=== PATIENT | female | born 1940 ===

== ENCOUNTER 2018-07-10 11:17 | Inpatient (IN) | payer MEDICARE ==
[~2018-07-10 11:17] MED LIST: Gadobenate Dimeglumine 529 MG/1 ML (20ML VIAL) ONE
--- NOTE | 2018-07-10 11:58 | RAD ---
CHEST 1 VIEW: Date: 07/10/18 INDICATION: Altered mental status. COMPARISON: None. FINDINGS: There is mild cardiomegaly. There is mild pulmonary vascular congestion. No consolidation, pleural ef fusion, or pneumothorax evident. No acute osseous abnormality is evident. IMPRESSION: Mild cardiomegaly with mid pulmonary vascular congestion. POS: TPC
[2018-07-10 11:59] LABS: #Eosinphils 0.1 thou/uL (0.0-0.7); #Lymphocytes 0.9 thou/uL (1.20-3.40); #Monocytes 0.6 thou/uL (0.11-0.59); #Neutrophils 3.9 thou/uL (1.40-6.50); %Basophils 0.8 % (0.0-1.0); %Eosinophils 2.3 % (0.0-10.0); %Lymphocytes 15.3 % (21.0-51.0); %Monocytes 11.6 % (0.0-10.0); %Neutrophils 69.9 % (42.0-75.0); Hemoglobin 13.5 g/dL (12.0-16.0); Mean Corpuscular HGB CONC 32.6 g/dL (32.0-36.0); Mean Corpuscular Hemoglobin 29.4 pg (27.0-31.0); Mean Corpuscular Volume 90.3 fL (78.0-98.0); Mean Platelet Volume 8.3 fL (7.4-10.4); Platelet Count 177 thou/uL (130-400); Red Blood Cell (RBC) Count 4.59 mill/uL (4.20-5.40); White Blood Cell (WBC) Count 5.6 thou/uL (4.8-10.8)
[2018-07-10 12:10] LABS: ALT (SGPT) 10 U/L (8-55); AST (SGOT) 15 U/L (5-34); Alkaline Phosphatase 50 U/L (40-150); Anion Gap 15 mmol/L (10-20); BUN (Urea Nitrogen) 14 mg/dL (9.8-20.1); Calc. Creatinine Clearance 0 mL/min (70-130); Carbon Dioxide 21 mmol/L (23-31); Chloride 104 mmol/L (98-107); Estimated GFR-MDRD 55; Globulin 3.3 g/dL (2.4-3.5); Glucose 109 mg/dL (83-110); Potassium 4.4 mmol/L (3.5-5.1); Protein, Total 7.3 g/dL (6.0-8.3); Sodium 136 mmol/L (136-145)
[2018-07-10] MEDS ORDERED: Acetaminophen 325 MG TAB ONE (12:12)
[2018-07-10] MEDS ORDERED: Piperacillin/Tazobactam 4.5 GM VIAL ONE (12:12)
[2018-07-10 12:14] LABS: Bilirubin Negative (Negative); Blood, Urine Small (Negative); Clarity CLEAR (Clear); Glucose, Urine (Dipstick) Negative (Negative); Leukocyte Negative (Negative); Nitrite Negative (Negative); Protein, Urine (Dipstick) Negative (Neg-Trace); Specific Gravity, Urine 1.015 (1.002-1.036)
[2018-07-10] MEDS ORDERED: Acetaminophen 325 MG Suppository ONE (12:19)
[2018-07-10 12:37] LABS: Bacteria/HPF None Seen HPF (None Seen); Hyaline Casts/LPF 0-3 HYALINE CAST LPF (0-3 Hyaline); Pathc Cast-AUWi Flag 0.58 (0-2.49); RBC/HPF 0-3 HPF (0-3); Squamous Epithelial 0-3 HPF (0-3); WBC/HPF 0-3 HPF (0-3)
[2018-07-10 14:31] LABS: Magnesium 2.1 mg/dL (1.6-2.6)
[2018-07-10] MEDS ORDERED: Lidocaine 2 gm/D5W 500 ml 0 ML ONE (14:46)
[2018-07-10] MEDS ORDERED: Fentanyl 100 MCG/2 ML VIAL ONE (14:46)
--- NOTE | 2018-07-10 14:49 | CT ---
CT HEAD NONCONTRAST: HISTORY: Altered mental status. FINDINGS: At the posterior aspect of the left temporal lobe at the expected location of the tentorium is a subt le ill-defined area of increased density. A subtle lentiform density also underlies the left occipit al calvarium at this location. No mass effect or shift of midline structures. Diffuse cortical atro phy and chronic ischemic small-vessel disease. Visualized paranasal sinuses remain well aerated. No depressed skull fracture is evident. IMPRESSION: Hyperdensity at the left posterior fossa as detailed above. While this most likely represents calcif ication associated with the falx and blood within the dural sinus, the appearance and asymmetry raise significant concern for a small amount of subarachnoid and subdural hemorrhage. In the setting of r ecent trauma, hemorrhage would be more likely. There is no mass effect. Please consider close monitoring and short-term CT followup. Findings were called to Dr. Ribera in the emergency department at 1426 hours. CODE CR POS: CHELSEA
--- NOTE | 2018-07-10 17:50 | HP ---
PRIMARY CARE PHYSICIAN: Dr. Glaser. CHIEF COMPLAINT: Altered mental status. HISTORY OF PRESENT ILLNESS: The history of present illness is taken from the patient's daughter, who is at the bedside. The patient has advanced dementia and is unable to offer any additional information. Ms. Hoff is a pleasant 78-year-old female, who has a history of advanced Alzheimer dementia. She also has congestive heart failure and COPD. She normally is able to get around with the help of her daughter and will talk even though she is confused and disoriented. However, on yesterday, her daughter noticed that something seemed a little off. She seemed more lethargic than usual and she was walking bent over like she could barely stand. They took her to the ER in [place], where they did a CT scan and lab work and urinalysis and was told everything was normal and did not admit her. The daughter says it took almost three people to get her packed up in the car to take her home from the ER. She was extremely weak and they brought her home and then the following day again she was extremely weak and lethargic and they could barely get her out of bed. She seemed warm to the touch and for this reason, they called EMS to bring her to the hospital. In the ER, the workup was essentially repeated over again and her chemistries and urine looked okay; however, she had a CT scan of the brain, which showed an area along the left posterior fossa, which could possibly represent a blood within the dural sinus and there was some question of a small subarachnoid and subdural hemorrhage. For this reason, she is being admitted. She was also noted to be febrile with a temperature of 101.6. REVIEW OF SYSTEMS: Unable to obtain review of systems due to the patient's confusion and dementia. PAST MEDICAL HISTORY: Significant for Alzheimer dementia, congestive heart failure, COPD, hypertension, hyperlipidemia, and a history of an abdominal aneurysm, status post repair. PAST SURGICAL HISTORY: She has had an AAA repair, back surgery, and cataracts. ALLERGIES: CODEINE, WHICH CAUSES NAUSEA. SOCIAL HISTORY: She is a former smoker. She is . She used to drink daily like a shot at night. She has 5 living children. She is a DNR according to her daughter and would not want any attempt at resuscitation and her daughter is her medical power of it risk and assurance manager. FAMILY HISTORY: Significant for Alzheimer disease. CURRENT MEDICATIONS: Her current medications are taken from her records and include: 1. Namenda 5 mg twice a day. 2. Galantamine 24 mg daily. 3. Gabapentin 300 mg twice a day. 4. Losartan 50 mg once daily. 5. Ventolin inhaler daily. 6. Latanoprost 0.005% as directed. PHYSICAL EXAMINATION: GENERAL: She is confused. She does not appear to be in any distress. She is well-developed and well-nourished. VITAL SIGNS: Temperature was 101.6, heart rate 99, respiratory rate of 20, and O2 saturation was 92% on room air. HEENT: Her pupils are equal, round, and reactive. Extraocular muscles are intact. Her sclerae anicteric. Throat: There is no erythema. No exudate. NECK: No adenopathy. No bruits. LUNGS: She has got some rhonchi throughout, but no wheezing, no rales. CARDIOVASCULAR: She had a normal S1 and S2. I did not appreciate an S3 or S4. No murmurs, clicks, or rubs. ABDOMEN: Obese. It is soft. It is nontender and nondistended. Positive for bowel sounds. There is no rebound, no guarding. EXTREMITIES: She has got 1+ nonpitting edema and some mild erythema on both lower extremities. NEUROLOGIC: She is moving all extremities. Her muscle strength appears to be intact; however, she does not follow commands. SKIN AND INTEGUMENT: Other than some mild erythema, there are no skin changes, no rash. She does have some mycotic nails. LABORATORY RESULTS: By my reading on the CT scan, it is evident of a small hyperdensity in the fissure as well as a what appears to be a very small subdural hematoma on the right. Chest x-ray also by my reading, she has got cardiomegaly with increased pulmonary vascular markings. There is some overlying shadow from breast shadow. Her CBC, the white blood cell count is 5.6, hemoglobin 13.5, hematocrit is 41.4, platelet count is 177. Sodium 136, potassium 4.4, chloride is 104, CO2 is 21, BUN of 14, creatinine 0.98, glucose is 109. Troponin is 0.013. Urinalysis, there was a small blood, otherwise negative. ASSESSMENT: This is a pleasant 78-year-old female, who presents with confusion, it is unclear etiology. 1. There is a metabolic encephalopathy. This is in the face of the patient having a fever with no other obvious source. This was discussed with the patient's daughter at the bedside. We were considering doing a lumbar puncture to rule out possible meningitis and/or to help see if there is any xanthochromia to give more evidence for subarachnoid hemorrhage. She did not want her mother to have to be put through this given her advanced dementia at her baseline. Therefore, another possible source is a bronchitis as she has some rhonchi on exam and has been exposed to family member with upper respiratory symptoms; therefore, we will treat empirically for this and see if there is any improvement. 2. Possible subdural and intracranial hemorrhage. Neurosurgery has been consulted. The area appears to be small. There is no evidence of any mass effect or midline shift. We will avoid any anti-platelet or anticoagulants. 3. Congestive heart failure. This appears to be mildly decompensated. Given her advanced dementia in lieu of doing an echo, we can obtain her records and then just treat symptomatically; when she is more stable, consider diuretic therapy. 4. Hypertension. Her blood pressure was slightly elevated on admission. We will go ahead and treat her with p.r.n. medications and further recommendations are to follow. Job ID: [id number]
[2018-07-10] MEDS ORDERED: Ondansetron ODT 4 MG TAB PO PRN (19:47)
[2018-07-10] MEDS ORDERED: hydrALAZINE 20 MG/ML VIAL SLOW IVP PRN (19:47)
[2018-07-10] MEDS ORDERED: Ondansetron PF 4 MG/2 ML Vial IVP PRN (19:47)
[2018-07-10] MEDS ORDERED: Labetalol HCl 100 MG/20 ML VIAL SLOW IVP PRN (19:47)
[2018-07-10] MEDS ORDERED: Sodium Chloride 0.9% 1,000 ML IV SCH (20:00)
[2018-07-10 20:04] VITALS: BMI 34.9
--- NOTE | 2018-07-10 20:40 | MRI ---
MRI BRAIN WITH AND WITHOUT CONTRAST: 07/10/18 HISTORY: 78-year-old female with altered mental status. Questionable intracranial hemorrhage on noncontrast CT obtained earlier today. TECHNIQUE: Multiple sequences obtained in axial, sagittal, and coronal planes, pre and post IV injection of gado linium-based contrast agent: 20 mL of Multihance. FINDINGS: There is no restricted diffusion, abnormal intraaxial enhancement, mass, midline shift or any other m ass effect, recent intraaxial hemorrhage, or extraaxial fluid collection. There are extensive, conflu ent T2-hyperintensities throughout the cerebral white matter consistent with severe chronic ischemic white matter changes due to microvascular atherosclerosis. There is diffuse brain parenchymal volume loss. There is no evidence of acute intra-axial or extra-axial hemorrhage. The region of high densit y on the recent CT, therefore is due to a combination of calcification along the left side of the ten torium cerebelli and adjacent normal transverse dural venous sinus. There are numerous tiny punctate foci of remote hemorrhages in the right cerebral hemisphere, mostly inferior portions, and a few on the left. These are consistent with multiple prior microhemorrhages, consistent with amyloid angiopathy (the differential diagnosis includes chronic hypertensive encephal opathy, but the lack of such foci in the basal ganglia makes that less likely). There is one very sma ll, short, gyriform focus of remote hemorrhage in the right parieto-occipital cortex which may repres ent a small region of previous hemorrhagic conversion of cortical infarction. There is moderate dilation of the lateral and third ventricles. This is probably on the basis of cent ral brain parenchymal atrophy. Normal pressure hydrocephalus is less likely, but clinical correlation is recommended (is there dementia, urinary incontinence, and/or gait apraxia?). IMPRESSION: 1. Involutional changes and severe chronic ischemic white matter changes. 2. No acute intracranial hemorrhage or any other acute intracranial findings. 3. Evidence for amyloid angiopathy vs chronic hypertensive encephalopathy. jn[] POS: JIN
[2018-07-10] MEDS: Famotidine/PF 20 mg/2ml Vial SLOW IVP SCH (20:52)
[2018-07-10] MEDS: cefTRIAXone\\ROCEPHIN 1 GM in Sodium Chloride 0.9% 100 ML IVPB SCH (20:53)
[2018-07-10] MEDS ORDERED: levETIRAcetam 500 MG in Sodium Chloride 0.9% 100 ML IVPB SCH (21:00)
--- NOTE | 2018-07-10 21:06 | CON ---
DATE OF CONSULTATION: HISTORY OF PRESENT ILLNESS: Ms. Hoff was brought to the emergency department today by EMS. Her daughter called them due to altered mental status over the last 24 hours. The patient's daughter states that she does have Alzheimer's, however, she lives with her and their brother. The patient gets around walking. She will get coffee throughout the day and can use the restroom on her own. The patient's daughter states that yesterday, she started acting off, not quite normal. She did not want to take her medications yesterday and was up and down a lot the night before. They took the patient to [facility] last night, which at that time they found nothing and she was sent home. The patient's daughter states that the patient urinated in her bed twice this morning and that is what prompted EMS. Neurosurgery was consulted today for patient due to a CT of the brain that showed a small subdural and subarachnoid hemorrhage. The patient's daughter does not recall any trauma or falls. She states that the night before last, it is possible that she hit her head on the door frame, but this was unwitnessed. The patient's daughter is worried due to the altered mental status as well as the patient complaining of back pain yesterday along with the urination, which is unusual for her in urinating on herself. REVIEW OF SYSTEMS: Historian reports a fever this morning. No eye discharge. No vision changes. No hearing changes. Historian denies cough or shortness of breath. No abdominal pain or nausea or vomiting. No constipation or diarrhea, however, positive for urinating in bed. Positive for back pain, change in gait and lethargy, altered mental status. ALLERGIES: CODEINE SULFATE. MEDICATIONS: 1. Namenda. 2. Galantamine. 3. Gabapentin. 4. Losartan. 5. Ventolin. 6. Latanoprost. 7. Aspirin 81 mg occasionally. PAST MEDICAL HISTORY: History of abdominal aneurysm, which was stented; hyperlipidemia; hypertension; pulmonary disease; COPD; Alzheimer's. PAST SURGICAL HISTORY: Abdominal aneurysm stenting, back surgery. SOCIAL HISTORY: The patient is a former smoker of cigarettes. Denies alcohol use. Denies any other drug use. Lives with daughter and her and son. PHYSICAL EXAMINATION: CONSTITUTIONAL: The patient is lethargic, but arousable with loud voices. She is confused, febrile, normotensive. Does not appear to be distressed. HEENT: Head is normocephalic, atraumatic. Pupils are small, yet reactive. Left pupil is not round, however, daughter states that is her normal. Extraocular movements are intact. Hearing is intact. Moist mucous membranes. RESPIRATIONS: Normal work of breathing on room air. Symmetrical chest rise. CARDIOVASCULAR: Regular rate and rhythm. EXTREMITIES: The patient is able to move all 4 extremities; however, she is not following commands for me. She does grimace with pain if we elicit any in her extremities and localizes. There is pitting edema in bilateral lower extremities, 2+. NEUROLOGIC: The patient is lethargic. She has a Troy Coma Scale of 10; 3, 2, 5. Cranial nerves are intact. The patient is moving all 4 extremities. IMAGING DATA: CT brain shows hyperdensity at the left posterior fossa while this most likely represents calcification associated with the falx and blood within the dural sinus. The appearance and asymmetry raises significant concern for small amount of subdural and subarachnoid hemorrhage. ASSESSMENT AND PLAN: Ms. Hoff is a 78-year-old female who is brought into the emergency department with altered mental status for the last 30 hours. Given the possible subdural and subarachnoid hemorrhage, likely that she may have hit her head, however, it is unknown if she did or not. Given her fever and altered mental status, I would like to order MRI, monitor closely, and have the medical team workup for any other signs of infection. We will order MRI of the brain with and without contrast, Keppra 500 mg b.i.d. and continue to monitor her neurologic status. Job ID: [id number]
[2018-07-10] MEDS: Azithromycin 500 MG in Sodium Chloride 0.9% 250 ML 250 ML IVPB SCH (21:34)
[2018-07-11] MEDS ORDERED: Prevnar 13-Val Conj/PF 0.5 ML SYRINGE IM ONE (01:15)
--- NOTE | 2018-07-11 07:26 | PRG ---
DATE OF SERVICE: 07/11/2018 NEUROSURGERY PROGRESS NOTE SUBJECTIVE: I personally examined the patient, reviewed records, and imaging, and agreed with the notes of Jenna Cardona PA-C, dated 07/10/2018. Briefly, Maryann Hoff is a 78-year-old woman brought to the emergency department yesterday with a change in her mental status. She is quite drowsy, difficult to keep awake, but she would with enough stimulus answer a question or two and drifts back to sleep. She had no focal motor or sensory deficits that could be appreciated, but a CT examination revealed some posteroinferior temporal lobe hyperdensities on her CT on the left side. Radiology was concerned this could represent some subarachnoid, parenchymal, or subdural hematoma. We ordered an MR scan and that was done yesterday as well, which dispelled that theory. Overnight, Ms. Hoff has been watched in the intermediate care unit. She has gradually woken up, and she is more alert and responsive today. Temperatures overnight 99.1 degrees Fahrenheit or less. Blood pressures in the 110s to 130s. Ms. Hoff wakes easily this morning. She answers questions appropriately. She is moving all four extremities quite well. She does not have a focal deficit that I can appreciate. I reviewed MR imaging, there are small punctate areas of hemosiderin deposition in inferior temporal lobes and on the tentorial surface of the occipital lobes bilaterally. None of these cause mass effect. None of these are acute hemorrhages. In fact, there is no acute hemorrhage in the brain or in the intracranial space. There is no significant enhancement of the lepto or and pachymeninges. There is hydrocephalus. There is T2 signal change around the ventricles, which might be suggestive of some transependymal CSF flow or white matter disease. There is not a significant amount of enhancement around the ependymal surfaces either. Ms. Hoff was placed on levetiracetam in case of what she presented with postictal confusion after seizure. The underlying diagnoses for problem are numerous, none of which require neurosurgical intervention. I will defer the management to Neurology and Medicine. She does not have intracranial hemorrhage and does not need follow up in our office. Ms. Hoff is safe for lumbar puncture with an opening pressure measurement showed that they desired, but again, I do not find anything acute that requires urgent attention from surgery. Job ID: [id number]
--- NOTE | 2018-07-11 08:11 | CT ---
PRELIMINARY REPORT/[facility]/EMERGENTY AFTER-HOURS PROCEDURE CT Head Without Contrast EXAM DATE/TIME: 07/11/2018 3:24 AM CLINICAL HISTORY: 78 years old, female; Condition or disease; Other: Alzheimers disease, AMS; Prior surgery; Surgery da te: Post-operative (0-2 days); Patient HX: F78 with HX of alzheimer's, chf, and copd presents to [facility] from home with daughter with C/O AMS with associated bladder incontinence which is not normal for PT per daughter and lethargy. Temp 101.6f en route per ems. Per daughter, PT was seen at [facility] yesterday with no abnormal findings on labs, CT, and ekg. Daughter states the PT has had s ome gait changes yesterday when PT can normally ambulate. TECHNIQUE: Axial computed tomography images of the head/brain without contrast. COMPARISON: No relevant prior studies available. FINDINGS: Brain: There is no evidence for acute stroke. There is global and diffuse parenchymal volume loss. Small, no dular, bilateral cerebellar tentorial densities which are most likely reflective of tentorial calcifi cations. There are bilateral 1foci of decreased attenuation in the periventricular and subcortical wh ite matter, nonspecific, but most consistent with chronic small vessel ischemic changes in patient of this age. Ventricles / cisterns / extra-axial spaces: There is no midline shift or acute extra-axial fluid clary ection. There is no sulcal effacement. Mild ventricular prominence out of proportion of degree of parenchymal volume loss, may reflect changes of normal pressure hydrocephalus. Sinuses: No findings of acute sinusitis or suspicious sinus mass. Bone: No acute fracture or displacement. Impression: Mild ventricular prominence out of proportion of degree of parenchymal volume loss, may reflect mun[place] es of normal pressure hydrocephalus. Small, nodular, bilateral cerebellar tentorial densities which are most likely reflective of tentoria l calcifications. MRI could be performed to excluded small hemorrhages, considered unlikely, but not completely excluded given no prior exam to serve as baseline. Thank you for allowing us to participate in the care of your patient. Dictated and Authenticated by: Michela Howe MD 07/11/2018 4:05 AM Central Time ([place] & [place]) FINAL REPORT CT HEAD NONCONTRAST PERFORMED ON AN EMERGENCY BASIS: Date: 07/11/18 Time: 0328 hours HISTORY: Abnormal CT. Possible intracranial hemorrhage. Syncope. COMPARISON: 07/10/18. FINDINGS: Findings agree with the preliminary report by Terri. Density along the left tentorium is less prominen t than on the prior study, now favored to be related to tentorial calcification. Hemorrhage is favore d to not be likely. POS: LESLEE
--- NOTE | 2018-07-11 08:38 | PDOC.PN ---
- Subjective Encounter Start Date: 07/11/18 Encounter Start Time: 08:36 Ms. Hoff was seen today in follow-up of altered mental status. She is much better today than she was yesterday. She is much more alert, and she is talking. Her daughter feels she is improved as well. - Objective Resuscitation Status - Order Detail: 07/10/18 16:58 Resuscitation Status Routine Resuscitation Status: DNAR: NO Resuscitation Discussed with: Discussed with the patient's daughter MAR Reviewed: Yes Vital Signs & Weight: Vital Signs (12 hours) Temp Pulse Ox 07/11/18 07:24 100 07/11/18 04:00 98.4 F 07/10/18 23:47 99.1 F Weight Weight 191 lb 5.78 oz Most Recent Monitor Data Heart Rate from ECG 83 NIBP 116/79 NIBP BP-Mean 91 Respiration from ECG 23 SpO2 97 I&O: 07/10/18 07/11/18 07/12/18 06:59 06:59 06:59 Intake Total 800 Output Total 550 Balance 250 Result Diagrams: 07/10/18 11:34 07/10/18 11:34 Phys Exam - Physical Examination HEENT: PERRLA Respiratory: wheezing present + rhonchi bilaterally Cardiovascular: no significant murmur, no rub, irregular Gastrointestinal: soft, non-tender, no distention, positive bowel sounds Musculoskeletal: pulses present, edema present Dx/Plan (1) Metabolic encephalopathy Code(s): G93.41 - METABOLIC ENCEPHALOPATHY Status: Acute (2) Acute bronchitis Code(s): J20.9 - ACUTE BRONCHITIS, UNSPECIFIED Status: Acute (3) CHF (congestive heart failure) Code(s): I50.9 - HEART FAILURE, UNSPECIFIED Status: Chronic (4) Alzheimer disease Code(s): G30.9 - ALZHEIMER'S DISEASE, UNSPECIFIED; F02.80 - DEMENTIA IN OTH DISEASES CLASSD ELSWHR W/O BEHAVRL DISTURB Status: Chronic (5) Back pain Code(s): M54.9 - DORSALGIA, UNSPECIFIED Status: Acute - Plan * Acute Metabolic encephalopathy- improving- possibly this is a result of acute bronchitis * Bronchitis- continue Azithromycin and Rocephin * She has improved significantly overnight- therefore meningitis is less likely * Neurosurgery input is appreciated- MRI did not show evidence of ICH or subdural hematoma- this has been ruled out * Back pain- she has had sudden back pain, and fever- will need to rule out disciitis, and epidural abscess- will check an MRI of the Lumbar spine * Irregular heart beat- will check an EKG to assess * Alzheimer's disease- stable. * OK for transfer out of the [facility]
[2018-07-11] MEDS: Famotidine/PF 20 mg/2ml Vial SLOW IVP SCH (09:56)
[2018-07-11] MEDS: Enoxaparin Sodium 40 MG/0.4 ML SYRINGE SC SCH (09:56)
[2018-07-11] MEDS ORDERED: predniSONE 20 MG TAB PO SCH (11:00)
[2018-07-11 11:04] LABS: #Eosinphils 0.1 thou/uL (0.0-0.7); #Lymphocytes 0.9 thou/uL (1.20-3.40); #Monocytes 0.6 thou/uL (0.11-0.59); #Neutrophils 3.7 thou/uL (1.40-6.50); %Basophils 0.5 % (0.0-1.0); %Eosinophils 1.6 % (0.0-10.0); %Lymphocytes 17.5 % (21.0-51.0); %Monocytes 11.2 % (0.0-10.0); %Neutrophils 69.2 % (42.0-75.0); Hemoglobin 12.5 g/dL (12.0-16.0); Mean Corpuscular HGB CONC 32.7 g/dL (32.0-36.0); Mean Corpuscular Hemoglobin 29.8 pg (27.0-31.0); Mean Corpuscular Volume 90.9 fL (78.0-98.0); Mean Platelet Volume 8.2 fL (7.4-10.4); Platelet Count 157 thou/uL (130-400); Red Blood Cell (RBC) Count 4.21 mill/uL (4.20-5.40); White Blood Cell (WBC) Count 5.4 thou/uL (4.8-10.8)
[2018-07-11 11:21] LABS: Chloride 104 mmol/L (98-107); Potassium 4.1 mmol/L (3.5-5.1); Sodium 138 mmol/L (136-145)
[2018-07-11 11:22] LABS: Calcium 8.6 mg/dL (7.8-10.44); Glucose 92 mg/dL (83-110)
[2018-07-11 11:23] LABS: Carbon Dioxide 26 mmol/L (23-31)
[2018-07-11 11:24] LABS: Anion Gap 12 mmol/L (10-20)
[2018-07-11 11:25] LABS: Calc. Creatinine Clearance 75 mL/min (70-130); Estimated GFR-MDRD 66
[2018-07-11 11:26] LABS: BUN (Urea Nitrogen) 12 mg/dL (9.8-20.1)
--- NOTE | 2018-07-11 12:00 | CON ---
DATE OF CONSULTATION: 07/11/2018 SERVICE: Pulmonary Medicine. REASON FOR CONSULTATION: IMCU patient. HISTORY OF PRESENT ILLNESS: The patient is a 78-year-old white female with past medical history significant for chronic pain. She was brought to the emergency department because of altered mentation. This was witnessed by family. The patient also has advanced dementia. In the emergency room, there was a CT scan, which had a questionable subdural hematoma on it. It was later identified that this was not the case. She had some fever, was lethargic, and was weaker than usual. She cannot provide any additional elements of the presentation because of her advanced cognitive impairment, which is at baseline. That being said, I am told that she is pretty close towards her baseline at this point. PAST MEDICAL HISTORY: 1. Alzheimer's dementia, advanced. 2. Hypertension. 3. Dyslipidemia. 4. COPD. 5. Congestive heart failure. PAST SURGICAL HISTORY: 1. Abdominal aortic aneurysm repair. 2. Back surgery. 3. Cataract surgery. SOCIAL HISTORY: She has a greater than 63-nupg-gcdg history of smoking, but quit remotely. She used to drink on a daily basis, but none to excess was recorded. She has no exposure to chemicals, dust, asbestos, or tuberculosis. She denies any illicit drugs. Currently, she lives in a nursing facility. FAMILY HISTORY: Noncontributory. ALLERGIES: CODEINE CAUSES NAUSEA. MEDICATIONS: List of her inpatient medications was reviewed. No specific updates were made at this time. REVIEW OF SYSTEMS: This cannot be obtained as the patient has encephalopathy. She currently denies any chest pain or shortness of breath. PHYSICAL EXAMINATION: VITAL SIGNS: Afebrile, pulse 88, blood pressure 116/79, respirations 18, and saturation 100% on 2 L nasal cannula. GENERAL: The patient is awake and alert, in no apparent distress. LUNGS: Decent air entry. Rhonchi are present with a prolonged expiratory phase. There is expiratory wheezing noted. HEART: Normal rate and regular. ABDOMEN: Soft, nontender, and nondistended. Bowel sounds are positive. MUSCULOSKELETAL: No cyanosis or clubbing. No pitting in bilateral lower extremities. NEUROLOGIC: Grossly nonfocal. LABORATORY DATA: WBC 5.6, hemoglobin 13.5, platelets 177,000. Neutrophil count is normal. Lactate is unremarkable. Troponins are negative x3. BNP 321. Lipase 25. Comprehensive metabolic profile is completely unremarkable. Urinalysis is negative. Blood cultures x2, urine culture, and influenza A and B are negative. IMAGING DATA: 1. CT of the brain demonstrates tentorial calcification without significant evidence of hemorrhage. 2. MRI of the brain demonstrates involution change and severe chronic ischemic white matter changes. No acute intracranial hemorrhage or other intracranial findings are present. 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 ASSESSMENT: 1. Metabolic encephalopathy, resolved. 2. Dementia, advanced. 3. Chronic obstructive pulmonary disease with acute exacerbation. DISCUSSION AND PLAN: The patient is doing fine from respiratory standpoint. Her mentation essentially is back to baseline. We will continue antibiotics, nebulized medications, and steroids. She can be transitioned out of the IMCU to the Medical Unit. Pulmonary will continue to follow for the time being. Oxygen will be weaned away through time. 70 minutes have been devoted to this patient in various activities. I personally reviewed all imaging studies and laboratory data noted within this document. For fifty percent of this time, I was interacting with the patient at the bedside or coordinating care with the care team. For the remainder of the time I was immediately available to the patient in the hospital unit. Job ID: [id number] MTDD
[2018-07-11] MEDS ORDERED: Gadobenate Dimeglumine 529 MG/1 ML (20ML VIAL) ONE (16:31)
--- NOTE | 2018-07-11 17:07 | MRI ---
MRI LUMBAR SPINE WITH AND WITHOUT GADOLINIUM CONTRAST: 07/11/18 HISTORY: Low back pain. Fever. FINDINGS: No enhancing fluid collections or other abnormal areas of contrast enhancement are apparent. Axial im ages partially show the distal abdominal aorta which is likely dilated, although it is incompletely i balbir. Radiographs are not available for direct correlation, therefore, the lowest lumbar type verteb juarez will be designated as L5, with the remainder numbered accordingly. There is severe S-shaped rotat ory scoliotic curvature. Desiccation of all of the intervertebral discs. Moderate degenerative bone m arrow changes within the end plates. The sagittal images including the lower thoracic spine show posterior disc protrusion at the T11-12 l evel with superior extension. It significantly compresses the ventral aspect of the thecal sac and ef faces the conus medullaris. T12-L1: Disc space narrowing. Posterior disc bulge and circumferential degenerative changes. Moderate stenosis of the central canal at each neural foramen. L1-2: Disc space narrowing and minimal degenerative spondylolisthesis. Posterior disc bulge and circu mferential degenerative changes. Moderate stenosis of the central canal. Moderate right and severe le ft foraminal stenosis. L2-3: Disc space narrowing. Minimal degenerative spondylolisthesis. Posterior disc bulge and circumfe rential degenerative changes. Severe stenosis of the central canal. Moderate right and severe left fo raminal stenoses. L3-4: Disc space narrowing. Posterior disc bulge and circumferential degenerative changes. Moderate t o severe stenosis of the central canal. Moderate right and severe left foraminal stenoses. L4-5: Disc space narrowing. Posterior disc bulge and circumferential degenerative changes. Moderate s tenosis of the central canal. Severe bilateral foraminal stenoses, right greater than left. L5-S1: Mild disc bulge. Thecal sac is patent. Degenerative changes with severe right and moderate lef t foraminal stenoses. IMPRESSION: Very prominent multilevel degenerative changes throughout the lumbar spine, including severe central canal and foraminal stenoses. Partially visualized posterior disc protrusion at the T11-12 level comp ressing the ventral aspect of the thecal sac and contacting the conus medullaris. No enhancing abnormalities are apparent to suggest a source of infection. Probable dilatation of the abdominal aorta. Prior abdominal imaging is not present for confirmation. POS: CHELSEA
[2018-07-11] MEDS: Sodium Chloride 0.45% 1,000 ML IV SCH (19:45)
[2018-07-11] MEDS: Azithromycin 500 MG in Sodium Chloride 0.9% 250 ML 250 ML IVPB SCH (19:46)
[2018-07-11] MEDS ORDERED: Acetaminophen 1,000 MG in Premix Bag 1 BAG IVPB PRN (21:06)
[2018-07-11] MEDS: cefTRIAXone\\ROCEPHIN 1 GM in Sodium Chloride 0.9% 100 ML IVPB SCH (22:31)
[2018-07-11] MEDS: Acetaminophen 325 MG TAB PO PRN (23:40)
[2018-07-12] MEDS: Sodium Chloride 0.45% 1,000 ML IV SCH (07:00)
[2018-07-12] MEDS: Enoxaparin Sodium 40 MG/0.4 ML SYRINGE SC SCH (09:50)
[2018-07-12] MEDS: predniSONE 20 MG TAB PO SCH (09:50)
[2018-07-12] MEDS: Acetaminophen 325 MG TAB PO PRN (09:53)
--- NOTE | 2018-07-12 12:25 | PDOC.PN ---
- Subjective Encounter Start Date: 07/12/18 Encounter Start Time: 08:30 Ms. Hoff was seen today in follow-up of Metabolic encephalopathy. She is back to her baseline mental status. She continues to have severe back pain. - Objective Resuscitation Status - Order Detail: 07/10/18 16:58 Resuscitation Status Routine Resuscitation Status: DNAR: NO Resuscitation Discussed with: Discussed with the patient's daughter CRIS Reviewed: Yes Vital Signs & Weight: Vital Signs (12 hours) Temp Pulse Resp Pulse Ox 07/12/18 08:00 99.2 F 94 L 07/12/18 07:22 94 L 07/12/18 07:21 83 21 H 07/12/18 03:49 98.8 F 07/12/18 02:07 97.8 F 07/12/18 00:50 95 07/12/18 00:49 95 Weight Weight 191 lb 5.78 oz Most Recent Monitor Data Heart Rate from ECG 86 NIBP 145/66 NIBP BP-Mean 92 Respiration from ECG 27 SpO2 90 I&O: 07/11/18 07/12/18 07/13/18 06:59 06:59 06:59 Intake Total 800 2225 Output Total 550 1150 Balance 250 1075 Result Diagrams: 07/11/18 10:46 07/11/18 10:46 Phys Exam - Physical Examination HEENT: PERRLA Respiratory: no wheezing, no rales, no rhonchi, clear to auscultation bilateral Cardiovascular: RRR, no significant murmur, no rub Gastrointestinal: soft, non-tender, no distention, positive bowel sounds Musculoskeletal: no edema, pulses present Dx/Plan (1) Metabolic encephalopathy Code(s): G93.41 - METABOLIC ENCEPHALOPATHY Status: Acute (2) Acute bronchitis Code(s): J20.9 - ACUTE BRONCHITIS, UNSPECIFIED Status: Acute (3) CHF (congestive heart failure) Code(s): I50.9 - HEART FAILURE, UNSPECIFIED Status: Chronic (4) Alzheimer disease Code(s): G30.9 - ALZHEIMER'S DISEASE, UNSPECIFIED; F02.80 - DEMENTIA IN OTH DISEASES CLASSD ELSWHR W/O BEHAVRL DISTURB Status: Chronic (5) Back pain Code(s): M54.9 - DORSALGIA, UNSPECIFIED Status: Acute - Plan * Metabolic Encephalopathy- resolved * Acute bronchitis- improving- continue Azithromycin and Rocephin, and Prednisone was added, as well as Duonebs * Back pain- MRI results were noted- she has severe Thoracic and Lumbar Spinal stenosis. No evidence of Epidural abscess or disckiitis. She has preserved doriflexion of both feet and 1st toes on both lower extremities. No bowel or bladder dysfunction- will therefore give a trial of PT/OT before considering surgical referral. * Alzheimer's Disease- advanced * CHF- ? type- compensated .
--- NOTE | 2018-07-12 16:42 | PRG ---
DATE OF SERVICE: 07/12/2018 SERVICE: Pulmonary Medicine. INTERVAL HISTORY: The patient is doing absolutely fantastic from respiratory standpoint. Her family is at bedside. There is suggesting that she is essentially back to normal. She has no complaints of chest pain or shortness of breath. There were no overnight events. PHYSICAL EXAMINATION: VITAL SIGNS: Afebrile, pulse 81, blood pressure 147/77, respirations 18, and saturation 97% on room air. GENERAL: The patient is awake and alert, in no apparent distress. LUNGS: Excellent air entry. There is really not much of a prolonged expiratory phase. Rhonchi are present. No crackles. HEART: Normal rate, regular. ABDOMEN: Soft, nontender, and nondistended. Bowel sounds are positive. MUSCULOSKELETAL: No cyanosis or clubbing. No pitting in the bilateral lower extremities. NEUROLOGIC: Grossly nonfocal. LABORATORY DATA: Blood cultures x2, urine culture, influenza A and B are all unremarkable today. ASSESSMENT: 1. Encephalopathy, resolved. 2. Dementia, advanced. 3. Chronic obstructive pulmonary disease with acute exacerbation, mild. DISCUSSION AND PLAN: The patient remains stable for transition out of the ICU to the medical unit. Pulmonary/Critical Care will continue to follow along. From my perspective, she is actually stable for discharge home. Job ID: [id number]
[2018-07-12] MEDS: Azithromycin 500 MG in Sodium Chloride 0.9% 250 ML 250 ML IVPB SCH (20:35)
[2018-07-12] MEDS: cefTRIAXone\\ROCEPHIN 1 GM in Sodium Chloride 0.9% 100 ML IVPB SCH (20:35)
[2018-07-13] MEDS: predniSONE 20 MG TAB PO SCH (08:09)
[2018-07-13] MEDS: Enoxaparin Sodium 40 MG/0.4 ML SYRINGE SC SCH (08:10)
--- NOTE | 2018-07-13 12:09 | PRG ---
DATE OF SERVICE: 07/13/2018 SERVICE: Pulmonary Medicine. INTERVAL HISTORY: The patient is doing fine from respiratory standpoint. She is breathing very comfortably today. She is all smiles. She is leaving the IMCU and going up to a floor room. Otherwise, there has been no interval change to her condition. PHYSICAL EXAMINATION: VITAL SIGNS: Afebrile. Pulse 70, blood pressure 147/75, respirations 20, saturation 93% on room air. GENERAL: The patient is awake and alert, in no apparent distress. LUNGS: Decent air entry. There is not much of prolonged expiratory phase or wheezing. Rhonchi are present. They clear with cough. HEART: Normal rate and regular. ABDOMEN: Soft, nontender, and nondistended. Bowel sounds are positive. MUSCULOSKELETAL: No cyanosis or clubbing. No pitting in the bilateral lower extremities. NEUROLOGIC: Nonfocal. ASSESSMENT: 1. Chronic obstructive pulmonary disease with mild exacerbation. 2. Dementia, advanced. 3. Encephalopathy, resolved. DISCUSSION AND PLAN: The patient is doing absolutely fantastic from respiratory standpoint. At this point, she is stable for transition out of the ICU to the medical unit. Pulmonary will continue to follow for the time being. Please call with additional questions or concerns through time. Job ID: [id number]
--- NOTE | 2018-07-13 14:41 | PDOC.PN ---
- Subjective Encounter Start Date: 07/13/18 Encounter Start Time: 12:30 Ms. Hoff was seen today in follow-up of metabolic encephalopathy. She is clinically much improved. She is back to her baseline mental status. she has not been complaining of back pain. - Objective Resuscitation Status - Order Detail: 07/10/18 16:58 Resuscitation Status Routine Resuscitation Status: DNAR: NO Resuscitation Discussed with: Discussed with the patient's daughter CRIS Reviewed: Yes Vital Signs & Weight: Vital Signs (12 hours) Temp Pulse Resp BP Pulse Ox 07/13/18 13:56 64 20 07/13/18 07:42 98.3 F 70 20 147/75 H 91 L 07/13/18 07:00 93 L 07/13/18 06:57 68 20 93 L 07/13/18 06:28 98.1 F 68 18 138/84 94 L 07/13/18 03:55 98.7 F Weight Weight 191 lb 5.78 oz Most Recent Monitor Data Heart Rate from ECG 79 NIBP 141/68 NIBP BP-Mean 92 Respiration from ECG 26 SpO2 93 I&O: 07/12/18 07/13/18 07/14/18 06:59 06:59 06:59 Intake Total 2225 650 Output Total 1150 300 Balance 1075 350 Result Diagrams: 07/11/18 10:46 07/11/18 10:46 Phys Exam - Physical Examination HEENT: PERRLA Respiratory: no wheezing, no rales, no rhonchi, clear to auscultation bilateral Cardiovascular: RRR, no significant murmur, no rub Gastrointestinal: soft, non-tender, no distention, positive bowel sounds Musculoskeletal: no edema, pulses present Dx/Plan (1) Metabolic encephalopathy Code(s): G93.41 - METABOLIC ENCEPHALOPATHY Status: Acute (2) Acute bronchitis Code(s): J20.9 - ACUTE BRONCHITIS, UNSPECIFIED Status: Acute (3) CHF (congestive heart failure) Code(s): I50.9 - HEART FAILURE, UNSPECIFIED Status: Chronic (4) Alzheimer disease Code(s): G30.9 - ALZHEIMER'S DISEASE, UNSPECIFIED; F02.80 - DEMENTIA IN OTH DISEASES CLASSD ELSWHR W/O BEHAVRL DISTURB Status: Chronic (5) Back pain Code(s): M54.9 - DORSALGIA, UNSPECIFIED Status: Acute - Plan * Metabolic Encephalopathy- resolved * Bronchitis- improving * Lumbar Spinal Stenosis- will continue PT/OT- symptom control * I spoke with the patient's daughter, and she would like her mother, the patient to go to [facility] before returning home
[2018-07-13] MEDS: cefTRIAXone\\ROCEPHIN 1 GM in Sodium Chloride 0.9% 100 ML IVPB SCH (21:17)
[2018-07-13] MEDS: Azithromycin 500 MG in Sodium Chloride 0.9% 250 ML 250 ML IVPB SCH (21:18)
[2018-07-14] MEDS: Enoxaparin Sodium 40 MG/0.4 ML SYRINGE SC SCH (08:49)
[2018-07-14] MEDS: predniSONE 20 MG TAB PO SCH (08:49)
--- NOTE | 2018-07-14 16:45 | PDOC.PN ---
- Subjective Encounter Start Date: 07/14/18 Encounter Start Time: 16:43 Ms. Castro was seen today in follow-up of metabolic encephalopathy. She has improved back to her baseline. She was up with PT, without complaints of pain. - Objective Resuscitation Status - Order Detail: 07/10/18 16:58 Resuscitation Status Routine Resuscitation Status: DNAR: NO Resuscitation Discussed with: Discussed with the patient's daughter CRIS Reviewed: Yes Vital Signs & Weight: Vital Signs (12 hours) Temp Pulse Resp BP Pulse Ox 07/14/18 13:05 98.0 F 69 18 138/84 91 L 07/14/18 12:51 71 20 07/14/18 08:47 97.4 F L 71 20 149/85 H 20 L 07/14/18 08:00 91 L 07/14/18 07:01 93 L 07/14/18 06:59 69 20 93 L 07/14/18 05:27 98.1 F 76 16 155/82 H 93 L Weight Weight 191 lb 5.78 oz Most Recent Monitor Data Heart Rate from ECG 79 NIBP 141/68 NIBP BP-Mean 92 Respiration from ECG 26 SpO2 93 I&O: 07/13/18 07/14/18 07/15/18 06:59 06:59 06:59 Intake Total 650 840 Output Total 300 Balance 350 840 Result Diagrams: 07/11/18 10:46 07/11/18 10:46 Additional Labs: Accuchecks 07/13/18 21:13 POC Glucose 225 H Phys Exam - Physical Examination HEENT: PERRLA Respiratory: no wheezing, no rales, no rhonchi, clear to auscultation bilateral Cardiovascular: RRR, no significant murmur, no rub Gastrointestinal: soft, non-tender, no distention, positive bowel sounds Musculoskeletal: no edema Dx/Plan (1) Acute bronchitis Code(s): J20.9 - ACUTE BRONCHITIS, UNSPECIFIED Status: Acute (2) CHF (congestive heart failure) Code(s): I50.9 - HEART FAILURE, UNSPECIFIED Status: Chronic (3) Alzheimer disease Code(s): G30.9 - ALZHEIMER'S DISEASE, UNSPECIFIED; F02.80 - DEMENTIA IN OTH DISEASES CLASSD ELSWHR W/O BEHAVRL DISTURB Status: Chronic (4) Back pain Code(s): M54.9 - DORSALGIA, UNSPECIFIED Status: Acute (5) Metabolic encephalopathy Code(s): G93.41 - METABOLIC ENCEPHALOPATHY Status: Resolved - Plan * Acute Bronchitis- improving * CHF- compensated * Alzheimer's disease- advanced but stable * Severe Lumbar spinal stenosis- continue PT/OT and symptom control * Awaiting senior care placement.
[2018-07-14] MEDS ORDERED: Azithromycin 250 MG TAB PO SCH (20:00)
[2018-07-14] MEDS: cefTRIAXone\\ROCEPHIN 1 GM in Sodium Chloride 0.9% 100 ML IVPB SCH (21:27)
--- NOTE | 2018-07-15 09:03 | PRG ---
DATE OF SERVICE: 07/14/2018 SERVICE: Pulmonary Medicine. INTERVAL HISTORY: The patient is doing absolutely wonderful from respiratory standpoint. She is on room air. She denies any chest pain or shortness of breath. Otherwise, she is essentially returned to her usual state of health. She remains extraordinarily weak. She is yet to really get out of bed. PHYSICAL EXAMINATION: VITAL SIGNS: Afebrile. Pulse 69, blood pressure 138/84, respirations 18, and saturation 92% on room air. GENERAL: The patient is awake and alert, in no apparent distress. LUNGS: Decent air entry. Some minimal rhonchi are present. No dependent crackles or wheezing is appreciated. HEART: Normal rate and regular. ABDOMEN: Soft, nontender, and nondistended. Bowel sounds are positive. MUSCULOSKELETAL: No cyanosis or clubbing. No pitting in the bilateral lower extremities. NEUROLOGIC: Grossly nonfocal. LABORATORY DATA: Blood cultures x2, urine culture, and influenza A and B are all unremarkable to date. ASSESSMENT: 1. Chronic obstructive pulmonary disease with mild exacerbation. 2. Dementia, advanced. 3. Encephalopathy, resolved. DISCUSSION AND PLAN: From a respiratory standpoint, the patient is stable for transition out of the hospital. At this point, she has no further inpatient requirements for Pulmonary Critical Care opinion, and I will sign off. Please call with additional questions or concerns moving forward. Job ID: [id number]
[2018-07-15] MEDS: Enoxaparin Sodium 40 MG/0.4 ML SYRINGE SC SCH (09:09)
[2018-07-15] MEDS: predniSONE 20 MG TAB PO SCH (09:09)
--- NOTE | 2018-07-15 11:11 | PDOC.PN ---
- Subjective Encounter Start Date: 07/15/18 Encounter Start Time: 11:10 Ms. Hoff was seen today in follow-up of acute bronchitis. She does not have any complaints. She appears at her baseline - Objective Resuscitation Status - Order Detail: 07/10/18 16:58 Resuscitation Status Routine Resuscitation Status: DNAR: NO Resuscitation Discussed with: Discussed with the patient's daughter CRIS Reviewed: Yes Vital Signs & Weight: Vital Signs (12 hours) Temp Pulse Resp BP Pulse Ox 07/15/18 08:21 98.0 F 68 18 90/58 L 100 07/15/18 08:01 75 20 91 L 07/15/18 04:32 98.2 F 75 18 142/83 H 93 L 07/15/18 01:40 97.9 F 80 18 154/88 H 96 07/15/18 00:32 62 16 92 L Weight Weight 191 lb 5.78 oz Most Recent Monitor Data Heart Rate from ECG 79 NIBP 141/68 NIBP BP-Mean 92 Respiration from ECG 26 SpO2 93 I&O: 07/14/18 07/15/18 07/16/18 06:59 06:59 06:59 Intake Total 840 452 Balance 840 452 Result Diagrams: 07/11/18 10:46 07/11/18 10:46 Phys Exam - Physical Examination HEENT: PERRLA Respiratory: no wheezing, no rales, no rhonchi, clear to auscultation bilateral Cardiovascular: RRR, no significant murmur, no rub Gastrointestinal: soft, non-tender, positive bowel sounds Musculoskeletal: no edema Dx/Plan (1) Acute bronchitis Code(s): J20.9 - ACUTE BRONCHITIS, UNSPECIFIED Status: Acute (2) CHF (congestive heart failure) Code(s): I50.9 - HEART FAILURE, UNSPECIFIED Status: Chronic (3) Alzheimer disease Code(s): G30.9 - ALZHEIMER'S DISEASE, UNSPECIFIED; F02.80 - DEMENTIA IN OTH DISEASES CLASSD ELSWHR W/O BEHAVRL DISTURB Status: Chronic (4) Back pain Code(s): M54.9 - DORSALGIA, UNSPECIFIED Status: Acute (5) Metabolic encephalopathy Code(s): G93.41 - METABOLIC ENCEPHALOPATHY Status: Resolved - Plan * Acute Bronchitis- resolving * Alzheimer's disease - stable * Lumbar spinal stenosis- continue PT/OT.
[2018-07-15 14:35] VITALS: BP 159/88; TEMP 98.7
--- NOTE | 2018-07-18 08:23 | PQF ---
[employer] Manager Hospitality Crystal Reports Winform ViewerOSCEM HAMILTON TONI MD [id number] [id number] CLINICAL DOCUMENTATION CLARIFICATION FORM: POST DISCHARGE Addendum to original discharge summary date: _ _Unknown type, she has CHF according to her daughter, but she was not able to tell me what type, and there are no electronic records indicating this. This was not the reason for her admission Late entry note date: __ Please exercise your independent, professional judgment in responding to the clarification form. Clinical indicators are provided on the bottom of this form for your review Please check appropriate box(s): HEART FAILURE: A. TYPE: [ ] Systolic / HFrEF [ ] Diastolic / HFpEF [ ] Combined Systolic / Diastolic B. ACUITY [ ] Acute [ ] Acute on Chronic [X ] Chronic [ ] Other diagnosis [ ] Unable to determine In addition, please specify: Present on Admission (POA): [ X ] Yes [ ] No [ ] Unable to determine For continuity of documentation, please document condition throughout progress notes and discharge summary. Thank You. CLINICAL INDICATORS - SIGNS / SYMPTOMS / LABS CHF- H&P, CONSULT AND ALL PROGRESS NOTES RISKS: HYPERTENSION- H&P, CONSULT AND ALL PROGRESS NOTES TREATMENTS: ON HOME LOSARTAN- H&P HYDRALAZINE IV- H&P (This form is maintained as a part of the permanent medical record) [employer] Winform [id number] [employer]. All Rights Reserved [email or web address] [email or web address] [phone] MTDD
== END 2018-07-15 16:14 | DRG 70 ==
LOC: ERS 11:17 → IMCU/EMU 16:26 → T4-B 07-13 06:41
PROVIDERS: ADMIT Internal Medicine; ATTEND Internal Medicine
DX: G93.41 Metabolic encephalopathy (principal); I62.00 Nontraumatic subdural hemorrhage, unspecified; I60.9 Nontraumatic subarachnoid hemorrhage, unspecified; J44.0 Chronic obstructive pulmonary disease with (acute) lower respiratory infection; J44.1 Chronic obstructive pulmonary disease with (acute) exacerbation; G30.9 Alzheimer's disease, unspecified; F02.80 Dementia in other diseases classified elsewhere, unspecified severity, without behavioral disturbance, psychotic disturbance, mood disturbance, and anxiety; I50.9 Heart failure, unspecified; I11.0 Hypertensive heart disease with heart failure; E78.5 Hyperlipidemia, unspecified; Z66 Do not resuscitate; J20.9 Acute bronchitis, unspecified; M54.9 Dorsalgia, unspecified; M48.061 Spinal stenosis, lumbar region without neurogenic claudication; G89.29 Other chronic pain; Z88.6 Allergy status to analgesic agent; Z87.891 Personal history of nicotine dependence
CPT/HCPCS: 36415; 36416; 51701; 70450; 70553; 71045; 72158; 80048; 80053; 81003; 81015; 83605; 83690; 83735; 83880; 84484; 85025; 87040; 87086; 87804; 93005; 93010; 94640; 96365; A9577; J0360; J0456; J0696; J1650; J1953; J2001; J2543; J3010; J3370; J7050; J7620; S0028